=== PATIENT | female | born 2005 | race Caucasian/White ===

== ENCOUNTER → 2023-05-14 18:20 | Outpatient (BNVA) | payer OTHER, SELFPAY | PROVIDERS: Family Provider Pediatrics Adolescent Medicine; PCP Pediatrics Adolescent Medicine; Visit Provider Registered Nurse Neonatal Intensive Care | DX: J02.9 Acute pharyngitis, unspecified (principal) | CPT/HCPCS: 87880 ==

== ENCOUNTER → 2025-10-03 11:02 | Outpatient (BNVA) | payer BC, SELFPAY | PROVIDERS: Family Provider Pediatrics Adolescent Medicine; PCP Pediatrics Adolescent Medicine | DX: R52 Pain, unspecified (principal) | CPT/HCPCS: 87400; 87426 ==